=== PATIENT | female | born 1965 | race Caucasian/White ===

== ENCOUNTER 2023-10-08 15:00 | Emergency (ER) | payer MEDICAID ==
[~2023-10-08] VITALS: Ht 160 cm; Wt 51.4 kg
[2023-10-08 16:06] LABS: BASOPHILS # (AUTO) 0.1 X10'3 (0-0.2); BASOPHILS % (AUTO) 0.2 % (0-1); HEMOGLOBIN 8.7 g/dl (12.0-16.0); LYMPHOCYTES # (AUTO) 1.6 X10'3 (1.1-4.8); MEAN PLATELET VOLUME 6.9 FL (7.4-10.4); MONOCYTES # (AUTO) 1.9 X10'3 (0-0.9)
[2023-10-08 16:07] LABS: EOSINOPHILS % (AUTO) 0.2 % (0-6); HEMATOCRIT 26.3 % (35.0-45.0); LYMPHOCYTES % (AUTO) 7.2 % (21-51); MEAN CORPUSCULAR HEMOGLOBIN 25.9 PG (27.0-31.0); MEAN CORPUSCULAR VOLUME 78.6 FL (78-98); MONOCYTES % (AUTO) 8.4 % (2-12); NEUTROPHILS # (AUTO) 18.7 X10'3 (1.8-7.7); PLATELET COUNT 647 X10'3 (140-440); RED BLOOD COUNT 3.34 X10'6 (4.20-5.60); RED CELL DISTRIBUTION WIDTH 14.4 % (11.5-14.5); WHITE BLOOD COUNT 22.3 X10'3 (4.5-11.0)
[2023-10-08 16:15] LABS: INR 1.1 INR; PROTHROMBIN TIME 11.4 SECONDS (9.0-12.0)
[2023-10-08 16:18] LABS: ALANINE AMINOTRANSFERASE 37 U/L (12-78); ALBUMIN 1.8 G/DL (3.4-5.0); ALBUMIN/GLOBULIN RATIO 0.3 (1.1-1.5); ALKALINE PHOSPHATASE 175 IU/L (46-116); ANION GAP 8 (8-16); ASPARTATE AMINO TRANSFERASE 33 U/L (10-37); BILIRUBIN,TOTAL 0.2 MG/DL (0.1-1.0); BLOOD UREA NITROGEN 14 MG/DL (7-18); BUN/CREATININE RATIO 15.7 (10.0-20.0); CALCIUM 8.5 MG/DL (8.5-10.1); CHLORIDE 99 MMOL/L (99-107); CREATININE 0.89 MG/DL (0.40-0.90); GLUCOSE 98 MG/DL (70-104); POTASSIUM 3.8 MMOL/L (3.5-5.1); SODIUM 136 MMOL/L (135-145); TOTAL CARBON DIOXIDE 28.8 MMOL/L (24-32); eCRCL 56 ML/MIN; eGFR 65 ML/MIN
[2023-10-08 16:47] LABS: MAGNESIUM 1.7 MG/DL (1.5-2.4)
[2023-10-08] MEDS: ondansetron/PF 4mg/2ml inj IV ONE (17:35)
[2023-10-08] MEDS: normal saline 1000ml 1,000 ML IV ONE (17:35)
[2023-10-08] MEDS: morphine 4 MG/ML inj SYRINge IV ONE (17:36)
[2023-10-08 17:41] LABS: BILIRUBIN,URINE NEGATIVE (Neg); CLARITY,URINE CLEAR (Clear); COLOR,URINE YELLOW (Yellow); GLUCOSE, URINE NEGATIVE (Neg); KETONES,URINE NEGATIVE (Neg); LEUKOCYTE ESTERASE ,URINE NEGATIVE (Neg); NITRITES, URINE POSITIVE (Neg); OCCULT BLOOD,URINE NEGATIVE (Neg); PH,URINE 6.5 (4.8-8.0); PROTEIN,URINE NEGATIVE (Neg); UROBILINOGEN,URINE 0.2 E.U/dL (0.2-1.0)
[2023-10-08 17:45] LABS: UA COLLECTION TYPE CLN CATCH MIDSTREAM
[2023-10-08 17:46] LABS: BACTERIA,URINE 3+ /HPF (Neg); MUCUS STRANDS NONE SEEN /LPF (Neg); RBC,URINE NONE SEEN /HPF (0-2); SQUAMOUS EPITHELIAL CELL,UR FEW /LPF (FEW); WBC,URINE 0-4 /HPF (0-4)
[2023-10-08 17:49] LABS: URINE AMPHETAMINE SCREEN NEGATIVE (Neg); URINE BARBITUATE SCREEN NEGATIVE (Neg); URINE BENZODIAZEPINES SCREEN NEGATIVE (Neg); URINE CANNABINOID SCREEN NEGATIVE (Neg); URINE COCAINE SCREEN NEGATIVE (Neg); URINE METHADONE SCREEN NEGATIVE (Neg); URINE OPIATE SCREEN NEGATIVE (Neg); URINE PHENCYCLIDINE SCREEN NEGATIVE (Neg)
[2023-10-08] MEDS ORDERED: iohexol 350MG/ML 100ml bottle IV ONE (17:53)
[2023-10-08 17:54] VITALS: BP 129/65; O2SAT 99
[2023-10-08] MEDS: CefTRIAXone/D5W-Rocephin 1gm 50 ML IV ONE (18:22)
[2023-10-08 18:54] VITALS: PULSE 102; TEMP 99.2
[2023-10-08] MEDS ORDERED: ketorolac trometh. 30mg/ml inj. IV ONE (19:10)
[2023-10-08 19:30] VITALS: RESP 16
[2023-10-08] MEDS: ketorolac tromethamine 15mg/ml inj. IV ONE (19:30)
[2023-10-08] MEDS ORDERED: LEVO-65 PO (19:33)
[2023-10-08] MEDS ORDERED: GABA300C PO (19:33)
== END 2023-10-08 19:49 | disposition home or self-care (01) ==
LOC: ER 15:01
DX: N39.0 Urinary tract infection, site not specified (principal); R19.7 Diarrhea, unspecified; M54.32 Sciatica, left side; Z79.899 Other long term (current) drug therapy; Z79.2 Long term (current) use of antibiotics
CPT/HCPCS: 36415; 71045; 71275; 80053; 80305; 81001; 83605; 83735; 84145; 85025; 85379; 85610; 87040; 87077; 87088; 87186; 93005; 93926; 93971; 96361; 96374; 96375; 99285; J0696; J1885; J2270; J2405; J3490; J7030; Q9967

== ENCOUNTER 2025-02-18 07:08 | Inpatient (IN) | payer MEDICAID ==
[~2025-02-18] VITALS: Ht 160 cm; Wt 51.0 kg
[~2025-02-18 07:08] MED LIST: GABA300C PO
--- NOTE | 2025-02-18 07:25 | Physician Documentation ---
History of Present Illness ~ Chief Complaint: Mechanical Fall Stated Complaint: FALL Time Seen by MD: 07:17 Primary Medical Doctor: LUIS BAXTER [facility] HPI This is a pleasant 59-year-old female who reports no past medical history presents for evaluation of potential injuries sustained in the fall. She states that she got up, experiences spinning sensation/dizziness, fell down struck the back of her head. Positive loss of consciousness. Evidently coffee-ground emesis on scene. She states that she has been dizzy for the last couple of days and fell off the toilet the other day due to dizziness. She vomited at the time with a coffee-ground emesis. At the time of my examination complains of a headache. She also reports chest pain that has been present for the last couple of days, no obvious trigger provocation, insidiously getting worse. She states the chest pain is exertional. She is no longer able to perform activities of daily living and it is very hard to walk any reasonable distance. She also reports that she has been constipated for a week. Does report passing flatus. Denies drinking. Denies liver disease. Tetanus within 5 Years?: No Medication Reconciliation Allergies: Coded Allergies: No Known Allergies (Unverified , 02/18/25) Scheduled Gabapentin (Neurontin), 1 CAP PO HS Review of Systems ROS 10 point review of systems was performed and unless noted above in HPI is negative for acute process/complaint. Physical Exam Physical Exam GENERAL: Awake, alert, oriented, GCS 15, no apparent distress, pale appearing, answers questions, follows commands appropriately. Examined immediately upon arrival in bed 13. HEENT: Atraumatic, normocephalic, extremely pale conjunctiva with the no visible blood vessels, pupils equal, extraocular muscles intact, sclerae anicteric, dried brown emesis on the left side of the mouth, mucus membranes moist, oropharynx is clear, no stridor. NECK: supple, full active range of motion, trachea midline, no thyromegaly, no lymphadenopathy, no JVD. CARDIOVASCULAR: regular rate/rhythm, no murmurs/gallops/rubs, Pulses are 2+ in all extremities and symmetric. Capillary refill less than 2 seconds. PULMONARY: Nonlabored, good air movement ,no respiratory distress, speaking in full sentences, clear to auscultation bilaterally, no wheezing, no ronchi, no rales, no accessory muscle use. GASTROINTESTINAL: Soft, non-tender, non-distended, normal active bowel sounds, no organomegaly, no pulsatile masses, no CVA tenderness. NEUROLOGIC: Lucid with normal mental status. Normal facial symmetry. Moves all extremities symmetrically and with purpose. No truncal ataxia. Speech is fluid without evidence of dysarthria or aphasia, no focal deficits appreciated. MUSCULOSKELETAL: There is full range of motion of all extremities. There is no joint pain or joint swelling or joint erythema. There is no muscle pain or tenderness or swelling. EXTREMITIES: warm, well-perfused, no cyanosis, no clubbing, no edema, no acute deformities. Skin: warm, dry, no rashes or lesions, no jaundice, no petechiae orpurpura. No ecchymosis. PSYCHIATRIC: Normal affect, normal insight, normal concentration. Focused exam: [] Progress Results/Orders Results/Orders Orders - BONNIE WALKER DO Chest,Single View (02/18/25 07:17) Hs Troponin I W Calculations (02/18/25 09:17) Hs Troponin I W Calculations (02/18/25 10:17) * Orthostatic Vitals* Q12H (02/18/25 07:17) Ct Head (02/18/25 07:17) Ct Abdomen Pelvis (02/18/25 07:22) Completed Orders - BONNIE WALKER DO Electrocardiogram (02/18/25 07:17) Cbc/Diff (02/18/25 07:17) CK (02/18/25 07:17) D-Dimer (02/18/25 07:17) Lipase (02/18/25 07:17) Pt Inr (02/18/25 07:17) PTT (02/18/25 07:17) Chest,Single View (02/18/25 07:17) PBNP (02/18/25 07:17) MG (02/18/25 07:17) CMP (02/18/25 07:17) Hs Troponin I W Calculations (02/18/25 07:17) Meclizine Tablets (Antivert Tablet) (02/18/25 07:20) Iohexol 300mg/Ml 100ml Inj. (Omnipaque-3 (02/18/25 08:15) Medications Received in ER Medications (Trade) Dose Ordered Sig/[place] Route PRN Reason Start Time Stop Time Status Last Admin Dose Admin (Antivert tablet) 25 mg ONCE ONCE PO 02/18/25 07:20 02/18/25 07:21 DC 02/18/25 07:33 25 MG Vital Signs 02/18/25 02/18/25 02/18/25 02/18/25 07:17 07:36 07:38 08:22 Pulse 84 87 88 Resp 16 16 16 17 B/P (MAP) 139/66 120/60 (80) 129/67 (87) Pulse Ox 100 98 98 O2 Flow Rate 0 0 Laboratory Tests Test 02/18/25 07:31 White Blood Count 13.0 H Red Blood Count 2.00 L Hemoglobin 4.7 *L Hematocrit 14.7 *L Mean Corpuscular Volume 73.3 L Mean Corpuscular Hemoglobin 23.6 L Mean Corpuscular Hemoglobin Concent 32.1 L Red Cell Distribution Width 15.5 H Platelet Count 421 Mean Platelet Volume 7.5 Neutrophils (%) (Auto) 78.9 H Lymphocytes (%) (Auto) 10.9 L Monocytes (%) (Auto) 8.9 Eosinophils (%) (Auto) 0.6 Basophils (%) (Auto) 0.7 Neutrophils # (Auto) 10.2 H Lymphocytes # (Auto) 1.4 Monocytes # (Auto) 1.2 H Eosinophils # (Auto) 0.1 Basophils # (Auto) 0.1 CBC Comment Prothrombin Time 10.6 INR International Normalized Ratio 1.0 Activated Partial Thromboplast Time 21 L D-Dimer 1.82 H D-Dimer Comment Coagulation Comments Sodium Level 138 Potassium Level 3.3 L Chloride Level 102 Carbon Dioxide Level 27.9 Anion Gap 8 Blood Urea Nitrogen 35 H Creatinine 1.19 H Estimated GFR/1.73 m2 46 BUN/Creatinine Ratio 29.4 H Glucose Level 130 H Calcium Level 8.0 L Magnesium Level 1.8 Total Bilirubin 0.2 Aspartate Amino Transf (AST/SGOT) 13 Alanine Aminotransferase (ALT/SGPT) 15 Alkaline Phosphatase 121 H Total Creatine Kinase 28 Troponin I High Sensitivity 20 Pro-B-Type Natriuretic Peptide 159 H Total Protein 5.9 L Albumin 2.3 L Globulin 3.6 Albumin/Globulin Ratio 0.6 L Lipase 42 Chemistry Comments Medical Decision Making Findings Facility Status: ED Holds, E process The plan was discussed with the patient, who demonstrates clear understanding of the plan and is in agreement with the plan unless otherwise noted in the chart. All questions have been answered, all concerns were addressed unless otherwise documented. I was available throughout their ED stay for frequent reassessment and questions. Differential Diagnoses (considered and possible or likely): [Ground level fall, acute traumatic pain, closed head injury, concussion, subdural, subarachnoid, cervical spine fracture or subluxation, peripheral vertigo, less likely central causes of vertigo, with a respect to chest pain Differential diagnosis considered includes chest wall pain, pleurisy, pneumonia, pulmonary embolus, GERD, esophagitis, gastritis, anxiety, stress reaction, costochondritis, acute coronary syndrome, aortic dissection, pericarditis, myocarditis, or pneumothorax. Given help pale she is I am concerned about anemia including critical anemia requiring transfusion, upper GI bleed, lower GI bleed, bone marrow disease] ??Differential Diagnoses (considered and unlikely, not requiring evaluation currently): [No evidence of lateralizing signs to suspect a stroke] MDM Data Please see [facility] for the following: Independent Historians and external Records Review. Historian: [Patient] Independent Historians: ?[EMS, record review] Medication Management: [Reviewed medication list] Social History and determinants: [Reviewed] Please see the body of the note for the following: Any independent interpretations of ECG, imaging studies. All vitals signs/haemodynamics, ordered tests were independently reviewed and interpreted by myself. Nursing triage complaint and vitals reviewed, additional nursing notes were reviewed as available and I agree unless otherwise noted or documented in contradiction in the chart Vital Signs: Independently reviewed Labs: Independently interpreted Imaging: Independently interpreted Old Medical Records: Independently reviewed, see [facility] for relevant summary and information Pulse Oximetry: [94%] interpreted as [normal on room air] by me [Printed Circuit Board Layout Designer: [Regular Rate, Regular rhythm, no ectopy, NSR] reviewed and interpreted by me] Additionally notably showing: [Hemodynamics reviewed. The patient is not febrile, not hypotensive, no illicit this of narrow pulse pressure, no tachycardia. No respiratory distress. CBC shows critical anemia requiring transfusion. Coagulation panel is unremarkable. D-dimer is markedly elevated at 1.82. Chemistry notable for elevated BUN creatinine ratio of 29, below the threshold of upper GI bleed but more concerning for lower GI bleed.] Tests considered but not ordered include: [Initially did not consider CTA, we will order after elevated D-dimer,] Social Determinants of Health Impact: Patient was evaluated in [facility], or [facility] [place] access to healthcare due to below par ratio of patient to medical providers. [] Comorbid Conditions Impacting Present Evaluation and Care/Treatment: [None reported by the patient] Management Discussions with other Healthcare Providers: [Hospitalist regarding admission] Treatment and Disposition Medication Management (Given or considered): []. See EMR for details Consideration for Hospitalization/Escalation/Deescalation of Care: Admission for observation has been considered, is necessary for further investigation of her anemia, suspect a GI bleed, chest pain ?ED Course:?[CTA chest was ordered as well as CT abdomen and pending at the time of admission] ?Shared decision making:?[] Code status:?FULL Please see the full Electronic Medical Record for full details of nursing documentation, medications list, other records of complete past medical history and conditions, vital signs, laboratory studies, and any radiologic study interpretations by radiologists. Portions of this note were completed using [email or web address] dictation software and as a result there may exist minor errors in spelling. I have reviewed elements of past family and social history and agree as included in note. Departure Disposition: ADMITTED INPATIENT Impression: Primary Impression: Anemia requiring transfusions Additional Impressions: Exertional chest pain Exertional dyspnea Coffee ground emesis Condition: Guarded Referrals: NO PRIMARY CARE PROVIDER (PCP) Critical Care Note Critical Care Note CRITICAL CARE TIME: [ 45] minutes Treatments/Evaluations: Close monitoring and treatment of unstable vital signs, cardiorespiratory, and neurologic status, while maintaining tight balance of fluid, respiratory, and cardiac interventions. This time includes discussing the case with the patient and the patients family. This time does not include all procedures stated elsewhere in this record. This time also includes reviewing old records, labs and radiological studies. This time includes examining and re- examining the patient. Additionally, this time also includes arranging care with admitting and consulting physicians. Signature Scribe Signature: No scribe Attestation: This note accurately reflects clinical decisions, work performed by myself, DO DENISE Carrillo NICHOLAS M DO Feb 18, 2025 07:25
--- NOTE | 2025-02-18 07:41 | ELECTROCARDIOGRAPH REPORT ---
[facility] Test Date: 2025-02-18 Test Time: 07:39:12 Pat Name: FELIPA WHITTAKER Department: [facility] Patient ID: [id number] Room: Gender: F Hospital Clerk: : 1965 Requested By: BONNIE WALKER Order Number: [id number] Reading MD: Measurements Intervals [place] Rate: 87 P: 59 OR: 147 QRS: 39 QRSD: 94 T: 44 QT: 389 QTc: 468 Interpretive Statements Sinus rhythm Please click the below link to view image of tracing.
[2025-02-18 07:45] LABS: MEAN PLATELET VOLUME 7.5 FL (7.4-10.4); RED CELL DISTRIBUTION WIDTH 15.5 % (11.5-14.5)
[2025-02-18 07:59] LABS: APTT 21 SECONDS (22-32); INR 1.0 INR
[2025-02-18 08:02] LABS: CREATININE 1.19 MG/DL (0.40-0.90); TOTAL CARBON DIOXIDE 27.9 MMOL/L (24-32); eCRCL 40 ML/MIN; eGFR 46 ML/MIN
[2025-02-18 08:10] LABS: PRO BRAIN NATRIURETIC PEPTIDE 159 PG/ML (0-125)
[2025-02-18] MEDS ORDERED: iohexol 300mg/ml 100ml inj. ONE (08:15)
--- NOTE | 2025-02-18 08:43 | RADIOLOGY REPORT ---
EXAM: DI CHEST,SINGLE VIEW Indication: Chest pain Technique: Single frontal view of the chest was obtained Comparison: CT CTA CHEST PE on DOS: 10/08/23, DI CHEST,SINGLE VIEW on DOS: 10/08/23 FINDINGS: Lines and Tubes: None Lungs: No focal consolidation. Pleura: No effusion. No pneumothorax. Cardiomediastinal contours: Unremarkable Bones: No acute osseous abnormality. IMPRESSION: No acute cardiopulmonary disease.
--- NOTE | 2025-02-18 09:37 | RADIOLOGY REPORT ---
EXAM: CT CT HEAD INDICATION: Fall with head strike, loss of consciousness TECHNIQUE: CT of the head without intravenous contrast. Coronal and sagittal reformatted images are s ubmitted. Radiation Dose : 1. Head: CT Dose: CTDI volume is 59.9 mGy. Dose-length product is 1097.1 mGy*cm The dose indicators for CT are the volume Computed Tomography (CT) Dose Index (CTDIvol) and the Dose Length Product (DLP), and are measured in units of mGy and mGy-cm, respectively. These indicators are not patient dose, but values generated from the CT scanner acquisition factors. The report includes radiation exposure data for exposures received during this examination. All CT scans at this medical facility are performed using dose modulation techniques as appropriate to a performed exam including the following: Automated exposure control was utilized; adjustment of the MA and/or KV according to patient size; and use of iterative reconstruction technique. COMPARISON: None FINDINGS: There is no evidence of acute intracranial hemorrhage, extra-axial collection, mass effect, midline s hift, herniation or hydrocephalus. The ventricles, sulci and cisterns are age appropriate. The galindo-white differentiation is intact. The visualized paranasal sinuses and mastoid air cells are clear. No depressed calvarial fracture. The surrounding soft tissues are unremarkable. IMPRESSION: 1. No acute intracranial abnormality.
--- NOTE | 2025-02-18 10:07 | RADIOLOGY REPORT ---
Exam: CT CT ABDOMEN PELVIS W/ IV CONTRAST History: Constipation COMPARISON: None Technique: Multidetector spiral CT of the abdomen and pelvis was performed from lung bases to pubic symphysis. Intravenous contrast was administered during this examination. Portal venous imaging was obtained. Axial, coronal and sagittal multiplanar reformats were performed by the technologist on a separate workstation. Radiation Dose : Abdomen/Pelvis: CTDIvol 6 mGy, DLP 323 mGy*cm. CONTRAST: Type of contrast: Omni 300 Contrast injected: 100 mL Findings: Lung Bases: No acute or significant lung base finding. Normal heart size. No pleural or pericardial effusion. Liver: Diffuse hepatic steatosis. Gallbladder and biliary Tree: Contracted and thick-walled. Spleen: Unremarkable Pancreas: The pancreas is normal in appearance without focal lesions or abnormal enhancement. Adrenal Glands: Unremarkable Kidneys: No hydronephrosis. Bladder: Bladder is compressed and displaced to the right. Bowel: Stomach is distended. Small bowel and colon are normal in caliber and distribution. The append ix is not visualized; however, no secondary findings of acute appendicitis identified. Large amount o f stool in the colon and rectum. Ascites: Absent Lymphadenopathy: No mesenteric, retroperitoneal or periportal lymphadenopathy. Abdominal wall and Mesentery: Unremarkable. Vasculature: The visualized abdominal aorta is normal in size and caliber. Abdominal and pelvic vess els demonstrate normal enhancement. Pelvic Organs: Cystic mass in the left adnexa measuring up to 100 mm. Musculoskeletal: No aggressive focal bony lesions, acute fractures or dislocation. IMPRESSION: 1. Cystic mass in the left adnexa concerning for ovarian neoplasm. Gynecologic evaluation is recomme nded. This can be further evaluated with ultrasound and/or MRI of the pelvis with contrast. 2. Large amount of stool throughout the colon and rectum consistent with constipation. Correlate for fecal impaction. 3. Diffuse hepatic steatosis. Gallbladder is contracted and thick walled. Radiation optimization: All CT scans at this facility use at least one of these dose optimization pasha hniques: Automated exposure control mA and/or kV adjustment per patient size (includes targeted exams where dose is matched to clinical indication) or iterative reconstruction. HS:Y
[2025-02-18] MEDS ORDERED: magnesium sulf-water 2g/50mL 50 ML IV PRN (10:30)
[2025-02-18] MEDS ORDERED: mag hydrox/Alum hydrox/simeth 30ml oral suspension PO PRN (10:30)
[2025-02-18] MEDS ORDERED: ondansetron/PF 4mg/2ml inj IV PRN (10:30)
[2025-02-18] MEDS ORDERED: potassium Cl 20 mEq SR tablet PO PRN ×2 (10:30)
[2025-02-18] MEDS ORDERED: magnesium sulf-water 4G/100mL 100 ML IV PRN (10:30)
--- NOTE | 2025-02-18 10:50 | HISTORY AND PHYSICAL ---
History & Physical Providers to CC ~ History of Present Illness Reason for Admit\Complaint: Upper GI bleed-syncope with coffee-ground emesis History of Present Illness This is a healthy 59-year-old female who presents to the ED with a one-week history of feeling dizzy and weakness and two episodes in the past two days of coffee-ground emesis the last episode the patient got up from the toilet struck there head and lost consciousness (a CT scan of the head is negative for bleed) the patient endorses taking ibuprofen four to 6 times a day every other day for the past several days previously the patient was drinking 4-5 monitor energy drinks a day however she quit six months ago. The patient's hemoglobin was 4.8 the patient is on a Protonix drip and tie binder we will see the patient and likely take the patient for EGD. Allergies: Coded Allergies: No Known Allergies (Unverified , 02/18/25) Home Medications Home Medications Active Neurontin (Gabapentin) 300 Mg Capsule 1 Cap PO HS 30 Days Past Medical History Past Medical History No chronic health conditions Past Surgical History Surgical History Comment No prior surgeries Family History Family History: Patient reports no known family medical history. Past Social History Social History Comment The patient is not smoke, or drink alcohol. 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 Full code status ROS ROS Except for positives in the HPI the rest of the 14 point review systems is negative Exam Vitals: Vital Signs Date Time Temp Pulse Resp B/P (MAP) Pulse Ox O2 Delivery O2 Flow Rate FiO2 02/18/25 10:30 86 16 105/59 (74) 99 0 General: Gen. No acute distress alert and oriented 4 Skin generalized pallor Lungs clear to ascultation bilaterally, no wheezes rales or rhonchi appreciated Heart normal sinus rhythm no murmurs rubs or clicks noted Abdomen soft nontender bowel sounds are normoactive Lower extremities no clubbing cyanosis, nor edema appreciated bilaterally Diagnostic Data Last Recorded Lab Results: 02/18/25 0731 02/18/25 0731 Diagnostic Data: Laboratory Tests Test 02/18/25 07:31 Prothrombin Time 10.6 SECONDS (9.0-12.0) INR International Normalized Ratio 1.0 INR Activated Partial Thromboplast Time 21 SECONDS (22-32) L D-Dimer 1.82 MG/L FEU (0-0.50) H D-Dimer Comment Coagulation Comments Advance Care Planning Advanced Care plannin - 30 Minutes Problems: (1) Coffee ground emesis Status: Acute Additional Plan # upper GI bleed # microcytic anemia NPO Protonix drip Iron studies tie binder will be taking the patient for a EGD possibly today versus tomorrow morning. 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 The patient has decided on a full code status Date of Service: Feb 18, 2025 Billing Provider: KOFI RODRIGUEZ DO Common Visit Codes: 51127-PVVKRWA INP/OBS CARE (HIGH) Secondary Visit Codes: 74306-PAKEXCUU CARE PLAN 30 MINUTES KOFI RODRIGUEZ DO Feb 18, 2025 10:50
[2025-02-18] MEDS: pantoprazole 40MG/NS 100ML BAG 100 ML IV SCH (12:10)
--- NOTE | 2025-02-18 13:02 | RADIOLOGY REPORT ---
INDICATION: Cystic mass in the left adnexa concerning for ovarian neoplasm TECHNIQUE: Multiple real-time grayscale transabdominal sonographic images along with color and duplex Doppler of the uterus and ovaries were obtained. COMPARISON: CT CT ABDOMEN PELVIS W/ IV CONTRAST on DOS: 02/18/25, VASC VL VENOUS on DOS: 10/08/23 FINDINGS: The uterus measures 9 x 2 x 6 cm. The right ovary measures 3 x 2 x 2 cm. There is a large complex mass in the left adnexa measuring 10 cm. Gynecologic consultation recommend ed IMPRESSION: 1. large complex mass in the left adnexa measuring 10 cm. Gynecologic consultation recommended
[2025-02-18 15:30] VITALS: BP 114/62; PULSE 84; RESP 16; TEMP 98.9; O2SAT 99
--- NOTE | 2025-02-18 15:32 | CONSULTATION REPORT - RESIDENT ---
Consult Providers to CC Resident Creating Document: CHLOE LAYTON RES History of Present Illness Reason for Admit\Complaint: Coffee-ground emesis History of Present Illness This is a 59-year-old female who presents to the ED with a one-week history of feeling dizzy and weakness. She complains of 2 episodes of coffee ground emesis since 2 days. The last episode the patient got up from the toilet, struck her head and lost consciousness (a CT scan of the head is negative for bleed). The patient complains that she had central chest pain yesterday and she took ibuprofen. She stated that she has been taking ibuprofen four to 6 times a day every other day for the past several days. Previously the patient was drinking 4-5 monitor energy drinks a day however she quit six months ago. Her last bowel movement was 1 week back and hard in consistency and she states that she has been having intermittent constipation, but denies abdominal pain. She complains having night sweats 2 days ago but denies fever or chills. She states that she took meth until 3 days ago and that she has been occasionally using it since 35 years of age. She has never had an EGD or colonoscopy. Allergies: Coded Allergies: No Known Allergies (Unverified , 02/18/25) Home Medications Home Medications Active Neurontin (Gabapentin) 300 Mg Capsule 1 Cap PO HS 30 Days Past Medical History Past Medical History No chronic health conditions. Past Surgical History Surgical History Comment No prior surgeries Family History Family History: Patient reports no known family medical history. Past Social History Social History Comment Smoking- She states that she quit smoking in 2002. She smoked 1 pack per day since she was 17. She denies drinking alcohol. 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 She states that she has been smoking meth ocassionally since she was 35 and that she last smoked 3 days back. ROS ROS Constitutional: She has dizziness and weakness, no fever, no change in appetite/weight HEENT: No blurring of the vision, No sore throat, epistaxis, tinnitus Cardiovascular: Central chest pain yesterday, resolved on taking Ibuprofen, No palpitations, No pedal edema Respiratory: No sob, cough, hemoptysis Gastrointestinal: nausea, vomiting - coffee ground emesis, positive constipation, No diarrhea, No abdominal pain, no melena. Genitourinary: No frquency, urgency, incontinence, nocturia. No dysuria, hematuria Musculoskeletal: No arthralgia, myalgia Endocrine: No fatigue, polydipsia, polyuria. No heat or cold intolerance Neurologic: No headache, vertigo. No weakness, numbness or tingling of extremities Psychiatric: No hallucinations/delusions, no anhedonia, no suicidal ideation\ Hematologic: No bleeding or bruises Exam Vitals: Vital Signs Date Time Temp Pulse Resp B/P (MAP) Pulse Ox O2 Delivery O2 Flow Rate FiO2 02/18/25 14:35 98.6 84 17 118/62 (80) 99 0 General: General: No acute distress, alert and oriented 4 HEENT: PERRLA, Conjunctiva- Pale, no lymphadenopathy Chest and Respiratory system: Lungs clear to ascultation bilaterally, no wheezes rales or rhonchi appreciated Heart: normal sinus rhythm, no murmurs rubs or clicks noted Abdomen: soft, nontender, bowel sounds are normoactive Lower extremities: no clubbing, cyanosis, nor edema appreciated bilaterally Skin: generalized pallor, Warm and dry Neurological: No focal neurological deficits Psychological: Affect and mood are normal Diagnostic Data Last Recorded Lab Results: 02/18/25 0731 02/18/25 0731 Diagnostic Data: Laboratory Tests Test 02/18/25 07:31 Prothrombin Time 10.6 SECONDS (9.0-12.0) INR International Normalized Ratio 1.0 INR Activated Partial Thromboplast Time 21 SECONDS (22-32) L D-Dimer 1.82 MG/L FEU (0-0.50) H D-Dimer Comment Coagulation Comments Additional Plan Coffee ground emesis: Upper GI bleed- Differential diagnosis: Esophagitis methamphetamine induced mucosal injury Peptic ulcer disease Plan: NPO Protonix drip continue patient on i.v Zofran 4 mg/2 ml vial Diagnostic EGD and if necessitated therapeutic intervention beta done at the same time. Microcytic Anemia- Most likely due to GI bleed Hb-4.7, Hct-14.7 L, MCV-73.3 L, RDW-15.5 H, RBC- 2.00 L 1 unit of PRBC transfusion given. Plan: Iron profile will be ordered, including iron, TIBC, ferritin levels Monitor Hb and Hct Colonoscopy to further evaluate microcytic anemia Constipation: Abdomen CT - Large amount of stool throughout the colon and rectum consistent with constipation. Differential diagnosis: Irritable bowel syndrome Plan: Continue patient on Docusate Sodium, Magnesium hydroxide and Aluminium hydroxide Hepatic steatosis Abdomen CT -Diffuse hepatic steatosis. Gallbladder is contracted and thick walled. Monitor daily CMP cystic mass in the left adnexa- concerning for ovarian neoplasm methamphetamine use disorder kidney disease hypokalemia Per Primary team The need for EGD, its benefits and complications, and the need for surgical intervention in the event of such a complication during EGD were explained to the patient, she understands and wishes to proceed further. Chloe Layton MD Internal Medicine Resident, PGY-1 Sepsis Screening Reassessment Date: Feb 18, 2025 Date of Service: Feb 18, 2025 Billing Provider: JANNETH OLGUIN MD, PREETHI, RES Feb 18, 2025 15:32 JANNETH OLGUIN MD Feb 18, 2025 17:00
[2025-02-18 18:30] VITALS: BP 118/63; PULSE 66; RESP 19; TEMP 98.7; O2SAT 95
[2025-02-18 18:31] LABS: MEAN PLATELET VOLUME 7.6 FL (7.4-10.4); RED CELL DISTRIBUTION WIDTH 18.6 % (11.5-14.5)
[2025-02-18] MEDS ORDERED: bisacodyl 10mg suppository rectal RC PRN (18:35)
[2025-02-18] MEDS: potassium Cl 40MEQ/1/2NS 520ml 520 ML IV PRN (19:02)
[2025-02-18] MEDS: docusate sod 100mg capsule PO SCH (19:48)
[2025-02-18] MEDS: K and/or MAG REPLACEMENT MC SCH (19:48)
[2025-02-18 20:00] VITALS: BP_SYST 120; BP_SYST 123; BP_SYST 141; BP_DIAS 54; BP_DIAS 56; BP_DIAS 70; PULSE 91; PULSE 93; PULSE 99
[2025-02-18 22:00] VITALS: BP 120/56; PULSE 91; RESP 16; TEMP 98.3; O2SAT 100
[2025-02-19] VITALS (22 sets, daily range): BP systolic 81–149; BP diastolic 43–78; PULSE 68–94; RESP 13–23; TEMP 96.4–98.8; O2SAT 97–100
[2025-02-19 08:12] LABS: MEAN PLATELET VOLUME 7.3 FL (7.4-10.4); RED CELL DISTRIBUTION WIDTH 18.7 % (11.5-14.5)
[2025-02-19 08:32] LABS: CREATININE 0.94 MG/DL (0.40-0.90); TOTAL CARBON DIOXIDE 21.0 MMOL/L (24-32); eCRCL 51 ML/MIN; eGFR 61 ML/MIN
[2025-02-19] MEDS ORDERED: propofol inj 20 ML IV ONE ×2 (11:11→11:38)
[2025-02-19 15:13] LABS: MEAN PLATELET VOLUME 7.4 FL (7.4-10.4); RED CELL DISTRIBUTION WIDTH 18.3 % (11.5-14.5)
[2025-02-19 16:07] LABS: % IRON SATURATION 9 % (11-46)
--- NOTE | 2025-02-19 16:09 | PROGRESS NOTE- Residence ---
Progress Note - Resident Providers to CC Resident Creating Document: CHLOE LAYTON RES ~ Antibiotic Timeout Antibiotic Ordered?: No Subjective Patient seen and examined at bedside. She has no vomiting now and no chest discomfort/pain. She did not have a bowel movement yet but she states that she is not distressed by it and that she is comparitively comfortable today. She states having good appetite. Objective Vital Signs Date Time Temp Pulse Resp B/P (MAP) Pulse Ox O2 Delivery O2 Flow Rate FiO2 02/19/25 13:32 97.7 76 14 130/68 (88) 98 Room Air 02/19/25 12:43 2.0 General: No acute distress, alert and oriented 4 HEENT: PERRLA, Conjunctiva- Pale, no lymphadenopathy Chest and Respiratory system: Lungs clear to ascultation bilaterally, no wheezes rales or rhonchi appreciated Heart: normal sinus rhythm, no murmurs rubs or clicks noted Abdomen: soft, nontender, bowel sounds are normoactive Lower extremities: no clubbing, cyanosis, nor edema appreciated bilaterally Skin: generalized pallor, Warm and dry Neurological: No focal neurological deficits Psychological: Affect and mood are normal Result Diagram: 02/19/25 1500 02/19/25 0754 Coagulation Studies Laboratory Tests Test 02/18/25 07:31 Prothrombin Time 10.6 SECONDS (9.0-12.0) INR International Normalized Ratio 1.0 INR Activated Partial Thromboplast Time 21 SECONDS (22-32) L D-Dimer 1.82 MG/L FEU (0-0.50) H D-Dimer Comment Coagulation Comments Assessment Assessment Coffee ground emesis- Upper GI bleed- EGD was done today and bleeding ulcer was successfully hemostasized. She states that she didn't have any vomiting today. She is constipated, didn't have a bowel movement since last week Plan Plan Hb-7.9, Hct-23.3 3 units of PRBC transfused and Hb went up from 4.7 to 7.9 Continue patient on i.v protonix, i.v zofran Continue Docusate sodium 100 mg BID PO Aluminium hydroxide/Magnesium hydroxide Q4h PRN Bisacodyl 10 mg PRN Date of Service: Feb 19, 2025 Billing Provider: JANNETH OLGUIN MD, PREETHI, RES Feb 19, 2025 16:08
--- NOTE | 2025-02-19 18:33 | PROGRESS NOTE ---
Daily Progress Note Providers to CC ~ Antibiotic Timeout Antibiotic Ordered?: No Subjective I evaluated the patient post EGD and informed her what land leasing information clerk Dr. Palacios told me- the patient highly likely has a ovarian cancer and we will need a referral from a primary care provider to Gyne oncologist Dr. Palacios also recommended I order an Hg for which will help with a diagnosis along with a CA 125 that was ordered yesterday. The patient was requesting food. Objective Vital Signs Date Time Temp Pulse Resp B/P (MAP) Pulse Ox O2 Delivery O2 Flow Rate FiO2 02/19/25 13:32 97.7 76 14 130/68 (88) 98 Room Air 02/19/25 12:43 2.0 Result Diagram: 02/19/25 1500 02/19/25 0754 Gen. No acute distress alert and oriented 4 Lungs clear to ascultation bilaterally, no wheezes rales or rhonchi appreciated Heart normal sinus rhythm no murmurs rubs or clicks noted Abdomen soft nontender bowel sounds are normoactive Lower extremities no clubbing cyanosis, nor edema appreciated bilaterally Coagulation Studies Laboratory Tests Test 02/18/25 07:31 Prothrombin Time 10.6 SECONDS (9.0-12.0) INR International Normalized Ratio 1.0 INR Activated Partial Thromboplast Time 21 SECONDS (22-32) L D-Dimer 1.82 MG/L FEU (0-0.50) H D-Dimer Comment Coagulation Comments Problem\Assessment\Plan Problems/Diagnosis: (1) Coffee ground emesis # upper GI bleed # iron-deficiency anemia Status post EGD with analyst market intelligence: KERON grade B reflux esophagitis with no bleeding Nonbleeding gastric ulcers with clean ulcer base Oozing duodenal ulcer with oozing hemorrhage hemostatic spray applied Continue Protonix drip Start p.o. iron with vitamin-C Status post transfusion of 3 units of packed red blood cells hemoglobin was 4.7 on a presentation currently 7.9 # cystic mass in the left adnexa- concerning for ovarian neoplasm Pelvic ultrasound demonstrated large complex mass in the left adnexa measuring 10 cm. Tumor markers CA 125 is ordered Evaluated by land leasing information clerk Dr. Palacios- unfortunately his offices not accept partnership and thus the patient we will need to be referred from a primary care provider to a embedded software test engineer oncologists Dr. 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
--- NOTE | 2025-02-19 18:34 | CONSULTATION ---
DATE OF CONSULTATION: 02/19/2025 DICTATING PHYSICIAN: Salbador Palacios MD PHYSICIAN REQUESTING CONSULT: Sundar Ramirez DO REASON FOR CONSULTATION: Incidental left ovarian mass. HISTORY OF PRESENT ILLNESS: The patient is a 59-year-old postmenopausal female who presented to the ER with complaints of dizziness and coffee-ground emesis. The patient was admitted from the ER secondary to severe anemia with a hemoglobin of 4.7. The patient was then admitted to the medicine service. I was called after a CT scan showed an incidental cystic 10 cm mass in the left adnexal area. The patient denies any pelvic pain or history of a pelvic mass. PHYSICAL EXAMINATION: GENERAL : The patient is alert and oriented and in no acute distress. CURRENT VITAL SIGNS: Temperature is 97.7, pulse of 76, respiratory rate of 16, blood pressure is 130/68, saturating 98% on room air. PELVIC: A pelvic exam was not performed due to no utility at this point. ABDOMEN: She is nondistended and nontender. There is a palpable mass in the left lower quadrant. However, she is nontender. SIGNIFICANT LABORATORY DATA: Current hemoglobin is 7.9 with a hematocrit at 23. White count is 9.8 and platelets of 300. SIGNIFICANT STUDIES: CT scan of the abdomen and pelvis confirmed a 10 cm left adnexal mass on 02/18/2025. Ultrasound of the pelvis also performed on 02/18/2025, confirmed a large complex mass in the left adnexal area measuring up to 10 cm. The right ovary appeared within normal limits. The uterus appears slightly enlarged for the patient's age of 8 x 6 x 2 cm. The endometrium was not reported. ASSESSMENT: A 59-year-old postmenopausal 8, para 8 female with right adnexal, probably ovarian complex mass, highly suspicious for ovarian malignancy based on the appearance. The patient is asymptomatic for this mass. PLAN: I discussed the findings with the patient extensively. I discussed the need for followup for this mass as it may represent a malignancy. A CA-[address] Ramirez, which is pending at this time. Unfortunately, I am unable to follow the patient as an outpatient due to her type of insurance, which is not accepted through my group. I have strongly recommended to the patient that she will follow up with her primary care provider if she does not have a hoop maker helper machine, which she states she does not. I also informed the patient the likelihood of need for referral to gynecologic oncology for further evaluation, especially if the CA-125 is over 50. I discussed the findings with Dr. Ramirez as well and my recommendations. I am signing off for now unless my services are required. I would be happy to reassess the patient at any time. Salbador Palacios MD TID: [id number] RECEIPT: [id number] KENNEDI/KIP
[2025-02-20] VITALS (7 sets, daily range): BP systolic 104–132; BP diastolic 51–72; PULSE 72–91; RESP 12–15; TEMP 97.4–99.2; O2SAT 97–99
--- NOTE | 2025-02-20 00:22 | PROGRESS NOTE ---
DATE: 02/19/2025 DICTATING PHYSICIAN: Melvin Faith MD SUBJECTIVE: The patient had uneventful overnight, awaiting endoscopy. OBJECTIVE: VITAL SIGNS: Normal. HEART: Normal. LUNGS: Normal. ABDOMEN: Soft, nontender, no masses, no organomegaly. EGD was performed, which revealed multiple gastric ulcers in the antral area and also ulcer, which was oozing actively. The ulcers in the antrum were all clean based without any stigmata of bleeding. As there were active bleeding, Hemospray was used, multiple sprays were given and hemostasis obtained. The patient was returned from the procedure room to the floor in stable condition. RECOMNMENDATIONS: We will monitor for any recurrent bleeding. We will continue PPI therapy. I believe that multiple ulcers in the antropyloroduodenal area effecting there is excessive NSAID use. I think with this therapy she will do well today, we will reevaluate tomorrow and transfuse necessary if there is any ongoing bleeding. Melvin Faith MD TID: [id number] RECEIPT: [id number] CHETAN/LICHA/HERLINDA
[2025-02-20] MEDS ORDERED: NO HOME MEDS (00:28)
[2025-02-20 06:06] LABS: MEAN PLATELET VOLUME 7.5 FL (7.4-10.4); RED CELL DISTRIBUTION WIDTH 18.5 % (11.5-14.5)
[2025-02-20 06:12] LABS: CREATININE 0.89 MG/DL (0.40-0.90); TOTAL CARBON DIOXIDE 23.3 MMOL/L (24-32); eCRCL 54 ML/MIN; eGFR 65 ML/MIN
[2025-02-20] MEDS: magnesium hydroxide 30ml (MOM) UD suspension PO PRN (12:10)
[2025-02-20] MEDS: polyethylene glycol 3350 17gm powd pack PO ONE (14:28)
[2025-02-20] MEDS: lactulose 20gm/30ml cup PO ONE (14:28)
[2025-02-20] MEDS: magnesium citrate 296ml oral solution PO ONE (14:55)
--- NOTE | 2025-02-20 18:29 | PROGRESS NOTE ---
DATE: 02/20/2025 DICTATING PHYSICIAN: Melvin Faith MD SUBJECTIVE: The patient is awake, alert, appears to be in no apparent distress. Has not had any further evidence of obvious GI bleeding. Hemoglobin is 7.4 today. It must be recalled that she had a history of taking excessive nonsteroidal anti-inflammatories. EGD yesterday revealed multiple antral pyloric ulcers and briskly oozing duodenal ulcer, which was treated with Hemospray during endoscopy. She seems to have not had any further GI bleeding. It must also be noted that she has MCV in the 70s upon admission and never has had a colonoscopy. OBJECTIVE: GENERAL: She is awake and alert, appears to be in no apparent distress. VITAL SIGNS: Normal. Otherwise examination is unremarkable and unchanged. IMPRESSION: Multiple antral pyloroduodenal ulcers, very likely secondary to excessive nonsteroidal anti-inflammatory use. A therapeutic endoscopy with Hemospray was done yesterday. She seems to have stopped bleeding at this time with stable hemoglobin. Not had any further melena or hematemesis. RECOMNMENDATIONS: * In view of that we will advance the diet. * Continue Protonix. * Followup histopathology. She will need a colonoscopy because of the low MCV as well as the colon cancer screening which she has never had, can be done as an outpatient if the patient has to leave the hospital in the next 1 or 2 days, but she requests it be done while she is in the hospital, if she can be prepped and colonoscopy performed. I would not prefer colon today as I had done a hemorrhagic control procedure yesterday and I would like for her to have some oral diet and advance it and possibly kept the bowel tomorrow for a colonoscopy for Tuesday. If length of stay is going to be interfering with that, colonoscopy can safely be done as an outpatient. I will discuss this logistic with the hospitalist and arrange accordingly. Melvin Faith MD TID: [id number] RECEIPT: [id number] CHETAN/LATOYA/HERLINDA
--- NOTE | 2025-02-20 19:36 | PROGRESS NOTE ---
Daily Progress Note Providers to CC No new complaint today, resting comfortably in the bed ~ Central Line/PICC still needed: No Antibiotic Timeout Antibiotic Ordered?: Yes MRSA Education MRSA Education Provided to pt: Yes Subjective As above Objective Vital Signs Date Time Temp Pulse Resp B/P (MAP) Pulse Ox O2 Delivery O2 Flow Rate FiO2 02/20/25 12:24 83 110/55 (73) 84 128/56 (80) 91 132/69 (90) 02/20/25 10:00 98.6 12 97 Room Air 02/19/25 12:43 2.0 Vital signs, stable ,afebrile. Pulse Oximetry reflects adequate oxygenation on 2 L oxygen nasal cannula. General: well developed, well nourished. Awake , alert, and oriented x4, resting comfortably in the bed, in no acute distress . Skin: Warm, dry, no pallor, no rash or petechiae. HEENT: Atraumatic, normocephalic, EOMI, anicteric sclera B; pink conjunctiva; PERRLA, normal oropharynx, moist oral and nasal mucosa. Tympanic membrane , nose , throat clear. Neck: Trachea midline. Supple, full range of motion, no JVD, bruit , hepatojugular reflex , lymphadenopathy or masses, or other lesions Cardiac: Regular rhythm, regular rate no murmurs, rubs, or gallops. Normal S1 and S2, no S3 noticed. PMI is normal. Respiratory: Equal breath sounds bilaterally, no tachypnea; lungs clear to auscultation bilaterally, no wheezing ,rub or rales, or crackles. Chest wall is symmetric and without deformity. No signs of trauma. Chest wall is nontender. No signs of respiratory distress. Resonance is normal upon percussion bilaterally. Gastrointestinal: Abdomen symmetric, non-distended, soft, non-tender, normal bowel sounds x4 quadrant, normoactive, no hepatosplenomegaly , no masses , no bruit, no flank pain bilaterally. No voluntary guarding, rebound, or rigidity. No tenderness to percussion. No pulsatile masses. Equal femoral pulses. No Garcia's sign or McBurney point tenderness. Back; no CVA tenderness bilaterally, no deformities. Neck and back are without deformity as well. No tenderness noted on palpation of the spinous processes. Spinous processes are midline. Cervical, thoracic, and lumbar paraspinal muscles are not tender and are without spasm. Musculoskeletal: Extremities, normal range of motion, non-tender, muscle strength 5/5 x 4. Negative Homans signs bilaterally on lower extremity. Distal pulses full symmetrical, no clubbing, cyanosis , edema. Neurological: Speech is clear, alert, and oriented x 4. No motor or sensory deficit, deep tendon reflexes normal, cerebellar intact. Cranial nerves II-XII intact. Psych: Alert and or appropriate, normal affect. Vascular: Good distal pulses, which are equal x4; capillary refill less than 2 seconds. Lymphatic, no lymphadenopathy. Result Diagram: 02/20/25 0546 02/20/2546 Coagulation Studies Laboratory Tests Test 02/18/25 07:31 Prothrombin Time 10.6 SECONDS (9.0-12.0) INR International Normalized Ratio 1.0 INR Activated Partial Thromboplast Time 21 SECONDS (22-32) L D-Dimer 1.82 MG/L FEU (0-0.50) H D-Dimer Comment Coagulation Comments Problem\Assessment\Plan Problems/Diagnosis: (1) Coffee ground emesis # upper GI bleed # iron-deficiency anemia Scheduled for colonoscopy Tuesday by GI doctor : Preparation of the colon, tomorrow Status post EGD with mailing machine helper: KERON grade B reflux esophagitis with no bleeding Nonbleeding gastric ulcers with clean ulcer base Oozing duodenal ulcer with oozing hemorrhage hemostatic spray applied Continue Protonix drip Start p.o. iron with vitamin-C Status post transfusion of 3 units of packed red blood cells hemoglobin was 4.7 on a presentation currently 7.9 # cystic mass in the left adnexa- concerning for ovarian neoplasm Pelvic ultrasound demonstrated large complex mass in the left adnexa measuring 10 cm. Tumor markers CA 125 is ordered Evaluated by menswear salesperson Dr. Palacios- unfortunately his offices not accept partnership and thus the patient we will need to be referred from a primary care provider to a nailhead setter oncologists Dr. 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
[2025-02-20] MEDS ORDERED: polyethylene glycol 3350 17gm powd pack PO ONE (21:00)
[2025-02-21 06:00] VITALS: BP 126/60; PULSE 86; RESP 14; TEMP 97.4; O2SAT 100
[2025-02-21 06:11] LABS: MEAN PLATELET VOLUME 7.7 FL (7.4-10.4); RED CELL DISTRIBUTION WIDTH 18.7 % (11.5-14.5)
[2025-02-21 06:50] LABS: CREATININE 1.02 MG/DL (0.40-0.90); TOTAL CARBON DIOXIDE 23.1 MMOL/L (24-32); eCRCL 47 ML/MIN; eGFR 55 ML/MIN
--- NOTE | 2025-02-21 07:31 | PROGRESS NOTE- Residence ---
Progress Note - Resident Providers to CC Resident Creating Document: CHLOE LAYTON RES ~ Antibiotic Timeout Antibiotic Ordered?: No Subjective Patient seen and examined at bedside. She complains of abdominal pain since this morning. She states that its diffuse all over her abdomen but no radiation. She looks distressed and is constipated. She has no vomiting and no chest discomfort/pain. Objective Vital Signs Date Time Temp Pulse Resp B/P (MAP) Pulse Ox O2 Delivery O2 Flow Rate FiO2 02/20/25 22:00 99.2 84 15 104/51 (68) 98 Room Air 02/19/25 12:43 2.0 General: mildly distressed, alert and oriented 4 HEENT: PERRLA, Conjunctiva- Pale, no lymphadenopathy Chest and Respiratory system: Lungs clear to ascultation bilaterally, no wheezes rales or rhonchi appreciated Heart: normal sinus rhythm, no murmurs rubs or clicks noted Abdomen: soft, tender, bowel sounds are normoactive Lower extremities: no clubbing, cyanosis, nor edema appreciated bilaterally Skin: generalized pallor, Warm and dry Neurological: No focal neurological deficits Psychological: Affect and mood are normal Result Diagram: 02/21/25 0517 02/21/25 0517 Coagulation Studies Laboratory Tests Test 02/18/25 07:31 Prothrombin Time 10.6 SECONDS (9.0-12.0) INR International Normalized Ratio 1.0 INR Activated Partial Thromboplast Time 21 SECONDS (22-32) L D-Dimer 1.82 MG/L FEU (0-0.50) H D-Dimer Comment Coagulation Comments Assessment Assessment Coffee ground emesis- Upper GI bleed- EGD revealed multiple antral pyloric ulcers and briskly oozing duodenal ulcer, which was treated with Hemospray during endoscopy. She seems to have not had any further GI bleeding. Hb-trended upto 7.6, hct-23.4, MCV initially was 79.7 and it has trended upto 81.5 She never had colonoscopy. Plan Plan Continue monitoring H&H Transfuse PRBC if Hb<7 Continue patient on i.v pantoprazole sodium 100 ml @ 20 ml/hr Q5h Continue i.v zofran 4 mg/2 ml Q6h Continue Docusate sodium 100 mg BID PO and Aluminium hydroxide/Magnesium hydroxide Q4h PRN Start patient on Golytely NPO after midnight Since she never had a colonoscopy and since MCV was low, She will be prepped for colonoscopy on Tuesday in view of the recent hemorrhagic control procedure 2 days back. The need for colonoscopy, its benefits and complications and the necessity for surgical intervention in the event of such a complication during colonoscopy were explained to the patient. She understands and wishes to proceed further. Chloe Layton MD Internal Medicine Resident, PGY-1 Date of Service: Feb 21, 2025 Billing Provider: JANNETH OLGUIN MD,CHLOE, RES Feb 21, 2025 07:31
[2025-02-21 08:00] VITALS: BP_SYST 110; BP_SYST 125; BP_SYST 128; BP_DIAS 69; BP_DIAS 72; BP_DIAS 76; PULSE 104; PULSE 87; PULSE 99
[2025-02-21 10:00] VITALS: BP 133/73; PULSE 78; RESP 16; TEMP 98.4; O2SAT 95
[2025-02-21] MEDS: magnesium hydroxide 30ml (MOM) UD suspension PO ONE (12:37)
[2025-02-21] MEDS: lactulose 20gm/30ml cup PO ONE (12:38)
[2025-02-21] MEDS: PEG 3350/Na sulf,bicarb,Cl/KCl oral sol 4 liter bottle PO ONE (12:39)
--- NOTE | 2025-02-21 16:00 | PROGRESS NOTE ---
Daily Progress Note Providers to CC No new complaint today getting ready for colonoscopy tomorrow ~ Central Line/PICC still needed: No Watts-Non Protocol Watts Indications Met/Not Met: F/C Indications Not Met Antibiotic Timeout Antibiotic Ordered?: No MRSA Education MRSA Education Provided to pt: No Subjective As above Objective Vital Signs Date Time Temp Pulse Resp B/P (MAP) Pulse Ox O2 Delivery O2 Flow Rate FiO2 02/21/25 10:00 98.4 78 16 133/73 (93) 95 Room Air 02/19/25 12:43 2.0 Vital signs, stable ,afebrile. Pulse Oximetry reflects adequate oxygenation 2 L oxygen nasal cannula General: well developed, well nourished. Awake , alert, and oriented x4, resting comfortably in the bed, in no acute distress . Skin: Warm, dry, no pallor, no rash or petechiae. HEENT: Atraumatic, normocephalic, EOMI, anicteric sclera B; pink conjunctiva; PERRLA, normal oropharynx, moist oral and nasal mucosa. Tympanic membrane , nose , throat clear. Neck: Trachea midline. Supple, full range of motion, no JVD, bruit , hepatojugular reflex , lymphadenopathy or masses, or other lesions Cardiac: Regular rhythm, regular rate no murmurs, rubs, or gallops. Normal S1 and S2, no S3 noticed. PMI is normal. Respiratory: Equal breath sounds bilaterally, no tachypnea; lungs clear to auscultation bilaterally, no wheezing ,rub or rales, or crackles. Chest wall is symmetric and without deformity. No signs of trauma. Chest wall is nontender. No signs of respiratory distress. Resonance is normal upon percussion bilaterally. Gastrointestinal: Abdomen symmetric, non-distended, soft, non-tender, normal bowel sounds x4 quadrant, normoactive, no hepatosplenomegaly , no masses , no bruit, no flank pain bilaterally. No voluntary guarding, rebound, or rigidity. No tenderness to percussion. No pulsatile masses. Equal femoral pulses. No Garcia's sign or McBurney point tenderness. Back; no CVA tenderness bilaterally, no deformities. Neck and back are without deformity as well. No tenderness noted on palpation of the spinous processes. Spinous processes are midline. Cervical, thoracic, and lumbar paraspinal muscles are not tender and are without spasm. Musculoskeletal: Extremities, normal range of motion, non-tender, muscle strength 5/5 x 4. Negative Homans signs bilaterally on lower extremity. Distal pulses full symmetrical, no clubbing, cyanosis , edema. Neurological: Speech is clear, alert, and oriented x 4. No motor or sensory deficit, deep tendon reflexes normal, cerebellar intact. Cranial nerves II-XII intact. Psych: Alert and or appropriate, normal affect. Vascular: Good distal pulses, which are equal x4; capillary refill less than 2 seconds. Lymphatic, no lymphadenopathy. 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 iron with vitamin-C Status post transfusion of 3 units of packed red blood cells hemoglobin was 4.7 on a presentation currently 7.9 # cystic mass in the left adnexa- concerning for ovarian neoplasm Pelvic ultrasound demonstrated large complex mass in the left adnexa measuring 10 cm. Tumor markers CA 125 is ordered Evaluated by therapist Dr. Palacios- unfortunately his offices not accept partnership and thus the patient we will need to be referred from a primary care provider to a payroll associate oncologists Dr. 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
[2025-02-21 18:00] VITALS: BP 112/46; PULSE 85; RESP 16; TEMP 98.8; O2SAT 93
[2025-02-21] MEDS: polyethylene glycol 3350 17gm powd pack PO SCH (19:53)
[2025-02-21 20:00] VITALS: BP_SYST 118; BP_SYST 124; BP_DIAS 58; BP_DIAS 60; PULSE 75; PULSE 79
[2025-02-21 22:00] VITALS: BP 118/58; PULSE 76; RESP 17; TEMP 98.2; O2SAT 99
[2025-02-22 06:00] VITALS: BP 103/50; PULSE 76; RESP 14; TEMP 98.9; O2SAT 97
[2025-02-22 06:21] LABS: MEAN PLATELET VOLUME 7.7 FL (7.4-10.4); RED CELL DISTRIBUTION WIDTH 19.9 % (11.5-14.5)
[2025-02-22 06:48] LABS: CREATININE 0.80 MG/DL (0.40-0.90); TOTAL CARBON DIOXIDE 23.8 MMOL/L (24-32); eCRCL 60 ML/MIN; eGFR 73 ML/MIN
[2025-02-22 07:46] LABS: PLATELET ESTIMATE NORMAL
[2025-02-22 08:00] VITALS: BP_SYST 122; BP_SYST 130; BP_SYST 134; BP_DIAS 64; BP_DIAS 72; BP_DIAS 76; PULSE 80; PULSE 86; PULSE 97
[2025-02-22 10:00] VITALS: BP 122/72; PULSE 80; RESP 16; TEMP 98.1; O2SAT 96
--- NOTE | 2025-02-22 10:19 | PROGRESS NOTE- Residence ---
Progress Note - Resident Providers to CC Resident Creating Document: CHLOE LAYTON RES ~ Antibiotic Timeout Antibiotic Ordered?: No Subjective Patient seen and examined at bedside. She is not in distress. She states that she passed small amount of dark clear stool. She has been chronically constipated since last 2 weeks but denied abdominal pain. She claims that she has always been constipated. She has no vomiting and no chest discomfort/pain. She denied fever and chills. Objective Vital Signs Date Time Temp Pulse Resp B/P (MAP) Pulse Ox O2 Delivery O2 Flow Rate FiO2 02/22/25 06:00 98.9 76 14 103/50 (67) 97 Room Air 02/19/25 12:43 2.0 General: alert and oriented 4, not in apparent distress HEENT: PERRLA, Conjunctiva- Pale, no lymphadenopathy Chest and Respiratory system: Lungs clear to ascultation bilaterally, no wheezes rales or rhonchi appreciated Heart: normal sinus rhythm, no murmurs rubs or clicks noted Abdomen: soft, non-tender, bowel sounds are normoactive Lower extremities: no clubbing, cyanosis, nor edema appreciated bilaterally Skin: generalized pallor, Warm and dry Neurological: No focal neurological deficits Psychological: Affect and mood are normal Result Diagram: 02/22/25 0502/22/25 0525 Coagulation Studies Laboratory Tests Test 02/18/25 07:31 Prothrombin Time 10.6 SECONDS (9.0-12.0) INR International Normalized Ratio 1.0 INR Activated Partial Thromboplast Time 21 SECONDS (22-32) L D-Dimer 1.82 MG/L FEU (0-0.50) H D-Dimer Comment Coagulation Comments Assessment Assessment EGD on 02/19/25 revealed multiple antral pyloric ulcers and briskly oozing duodenal ulcer, which was treated with Hemospray during endoscopy. Hb on admission-6.5 which trended upto 7.6, hct-22.2, MCV -81.5 3 units of PRBC were tranfused during this admission. She never had colonoscopy done previously. Abdomen/Pelvis CT-02/18/25 Large amount of stool throughout the colon and rectum consistent with constipation. Correlate for fecal impaction. Diffuse hepatic steatosis. Gallbladder is contracted and thick walled. She was scheduled for colonoscopy today but she didn't pass clear stool. She passed soft, dark stool, in view of this, colonoscopy has been postponed to Tuesday. Plan Plan Continue Golytely oral solution NPO from midnight Continue monitoring H&H Transfuse PRBC if Hb<7 Continue patient on i.v pantoprazole sodium 100 ml @ 20 ml/hr Q5h Continue i.v zofran 4 mg/2 ml Q6h Continue Docusate sodium 100 mg BID PO and Aluminium hydroxide/Magnesium hydroxide Q4h PRN The need for colonoscopy, its benefits and complications and the necessity for surgical intervention in the event of such a complication during colonoscopy were explained to the patient. She understands and wishes to proceed further. Chloe Layton MD Internal Medicine Resident, PGY-1 Date of Service: Feb 22, 2025 Billing Provider: JANNETH OLGUIN MD,CHLOE, RES Feb 22, 2025 10:19
--- NOTE | 2025-02-22 12:47 | RADIOLOGY REPORT ---
Exam: DI ABDOMEN,SINGLE VIEW(KUB) Indication: abdom pain Comparison: None Technique: 1 radiographic views of the abdomen. Findings: Nonobstructive bowel gas pattern noted. Large volume colonic stool. There is no definite evidence for pneumoperitoneum. No abnormal calcifications noted. Impression: Nonobstructive bowel gas pattern noted. Large volume colonic stool.
[2025-02-22] MEDS ORDERED: FERR325T33 PO (13:03)
[2025-02-22] MEDS ORDERED: PANT-47 PO (13:03)
[2025-02-22] MEDS ORDERED: BISA-155 PO (13:03)
--- NOTE | 2025-02-22 18:54 | DISCHARGE SUMMARY ---
Discharge Summary Providers to No new complaint today, asking to be discharged home for family emergency reasons ~ Discharge Summary Assessment Acute GI bleeding Post hemorrhagic anemia Peptic ulcer disease Left adnexa mass Hepatic steatosis History of methamphetamine abuse Chronic kidney disease Acute kidney injury secondary to vasomotorNephropathy hypokalemia Admission Diagnosis: Syncope/ upper GI bleed with severe anemia Admission Diagnosis Comment: Acute GI bleeding Post hemorrhagic anemia Peptic ulcer disease Left adnexa mass Hepatic steatosis History of methamphetamine abuse Chronic kidney disease Acute kidney injury secondary to vasomotorNephropathy hypokalemia Hospital Course DATE OF ADMISSION: February 18, 2025 DATE OF DISCHARGE: February 22, 2025 Discharge Diagnosis\Comment: Acute GI bleeding Post hemorrhagic anemia Peptic ulcer disease Left adnexa mass Hepatic steatosis History of methamphetamine abuse Chronic kidney disease Acute kidney injury secondary to vasomotorNephropathy hypokalemia Status post EGD Operations\Procedures: EGD Consultants: GI doctor Complications: Non Condition on DC: Stable Discharge Summary: This is a healthy 59-year-old female who presents to the ED with a one-week history of feeling dizzy and weakness and two episodes in the past two days of coffee-ground emesis the last episode the patient got up from the toilet struck there head and lost consciousness (a CT scan of the head is negative for bleed) the patient endorses taking ibuprofen four to 6 times a day every other day for the past several days previously the patient was drinking 4-5 monitor energy drinks a day however she quit six months ago. 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 After admission patient was extensively evaluated including gastroscopy, was found to peptic ul cer disease, recommended colonoscopy, patient refused elected to be discharged home for family emergency reasons, risk of severe complications and explained patient elected to be discharged, she will be discharged in stable condition follow-up with PCP, OBGYN doctor, oncologist, medication reconciled, return to emergency department if condition worsens, today on physical exam Vital signs, stable ,afebrile. Pulse Oximetry reflects adequate oxygenation. General: well developed, well nourished. Awake , alert, and oriented x4, resting comfortably in the bed, in no acute distress . Skin: Warm, dry, no pallor, no rash or petechiae. HEENT: Atraumatic, normocephalic, EOMI, anicteric sclera B; pink conjunctiva; PERRLA, normal oropharynx, moist oral and nasal mucosa. Tympanic membrane , nose , throat clear. Neck: Trachea midline. Supple, full range of motion, no JVD, bruit , hepatojugular reflex , lymphadenopathy or masses, or other lesions Cardiac: Regular rhythm, regular rate no murmurs, rubs, or gallops. Normal S1 and S2, no S3 noticed. PMI is normal. Respiratory: Equal breath sounds bilaterally, no tachypnea; lungs clear to auscultation bilaterally, no wheezing ,rub or rales, or crackles. Chest wall is symmetric and without deformity. No signs of trauma. Chest wall is nontender. No signs of respiratory distress. Resonance is normal upon percussion bilaterally. Gastrointestinal: Abdomen symmetric, non-distended, soft, non-tender, normal bowel sounds x4 quadrant, normoactive, no hepatosplenomegaly , no masses , no bruit, no flank pain bilaterally. No voluntary guarding, rebound, or rigidity. No tenderness to percussion. No pulsatile masses. Equal femoral pulses. No Garcia's sign or McBurney point tenderness. Back; no CVA tenderness bilaterally, no deformities. Neck and back are without deformity as well. No tenderness noted on palpation of the spinous processes. Spinous processes are midline. Cervical, thoracic, and lumbar paraspinal muscles are not tender and are without spasm. Musculoskeletal: Extremities, normal range of motion, non-tender, muscle strength 5/5 x 4. Negative Homans signs bilaterally on lower extremity. Distal pulses full symmetrical, no clubbing, cyanosis , edema. Neurological: Speech is clear, alert, and oriented x 4. No motor or sensory deficit, deep tendon reflexes normal, cerebellar intact. Cranial nerves II-XII intact. Psych: Alert and or appropriate, normal affect. Vascular: Good distal pulses, which are equal x4; capillary refill less than 2 seconds. Lymphatic, no lymphadenopathy. *Problems/Diagnosis: (1) Coffee ground emesis Status: Acute Total Time Spent on D/C: > 30 Minutes Date of Service: Feb 22, 2025 Billing Provider: [facility]ERMAINE HE[facility] MD Common Visit Codes: 02305-GXD/OBS DISCH DAY >30min GERMAINE HE[facility] MD Feb 22, 2025 18:54
== END 2025-02-22 16:20 | disposition home or self-care (01) | DRG 243 ==
LOC: ER 07:09 → ED HOLD 10:40 → EDBEDREQ 11:40 → ORTHO 4S 15:19 → UNDODISIN 16:40
PROVIDERS: ADMIT Family Medicine; ATTEND Family Medicine
PROC: 30233N1 Transfusion of Nonautologous Red Blood Cells into Peripheral Vein, Percutaneous Approach (ICD-10-PCS; 2025-02-18)
PROC: 0DJ08ZZ Inspection of Upper Intestinal Tract, Via Natural or Artificial Opening Endoscopic (ICD-10-PCS; principal; 2025-02-19 11:09)
DX: K21.01 Gastro-esophageal reflux disease with esophagitis, with bleeding (principal); N17.0 Acute kidney failure with tubular necrosis; K25.4 Chronic or unspecified gastric ulcer with hemorrhage; K76.0 Fatty (change of) liver, not elsewhere classified; D50.0 Iron deficiency anemia secondary to blood loss (chronic); E87.6 Hypokalemia; F15.10 Other stimulant abuse, uncomplicated; K59.00 Constipation, unspecified; K26.4 Chronic or unspecified duodenal ulcer with hemorrhage; N18.9 Chronic kidney disease, unspecified; Z79.899 Other long term (current) drug therapy
CPT/HCPCS: 36415; 36430; 43255; 70450; 71045; 74018; 74177; 76856; 80053; 82550; 83540; 83550; 83690; 83735; 83880; 84484; 85008; 85025; 85027; 85379; 85610; 85730; 86304; 86885; 86900; 86901; 86920; 87081; 93005; 93976; 96365; 97116; 97161; 97530; 99291; A4620; A6258; C1052; G0378; J2470; J2704; J3480; J7030; J7040; J7120; J8597; P9016; Q9967